=== PATIENT | male | born 1970 | race Caucasian/White ===

== ENCOUNTER 2020-10-08 18:24 | Inpatient (IN) | payer BC ==
[2020-10-08] MEDS ORDERED: ALBUTEROL HFA INHALER INHALATION STA (19:02)
[2020-10-08] MEDS ORDERED: ACETAMINOPHEN TAB 500 MG TAB PO STA (19:02)
[2020-10-08] MEDS ORDERED: DEXAMETHASONE SOD PHOSPHATE 10 MG/ML 1 ML VIAL IV STA (19:02)
--- NOTE | 2020-10-08 19:11 | ED ---
General Adult HPI - General Chief complaint: Shortness of Breath Stated complaint: Covid+,SOB Time Seen by Provider: 10/08/20 18:56 Source: patient, RN notes reviewed Mode of arrival: ambulatory Limitations: no limitations - History of Present Illness Initial comments: This a 50-year-old male presents emergency Department chief complaint of covid, shortness of breath. Patient states that he started his symptoms 8 days ago and states that he tested positive a week ago. Patient states he's been having increasing shortness breath. Denies any nausea vomiting diarrhea constipation. Patient reported fever. Patient denies any significant past medical history. Takes no medications. Patient states he exercises daily. Patient states that he is very fatigued currently. - Related Data Home Medications Medication Instructions Recorded Confirmed Acetaminophen Tab [Tylenol Tab] 1,000 mg PO Q6HR PRN 10/08/20 10/08/20 Allergies Allergy/AdvReac Type Severity Reaction Status Date / Time No Known Allergies Allergy Verified 10/08/20 20:32 Review of Systems ROS Statement: Those systems with pertinent positive or pertinent negative responses have been documented in the HPI. ROS Other: All systems not noted in ROS Statement are negative. Past Medical History Past Medical History: No Reported History History of Any Multi-Drug Resistant Organisms: None Reported Past Surgical History: No Surgical Hx Reported Past Psychological History: No Psychological Hx Reported Smoking Status: Never smoker Past Alcohol Use History: None Reported Past Drug Use History: None Reported General Exam Limitations: no limitations General appearance: alert, in no apparent distress Head exam: Present: atraumatic, normocephalic, normal inspection Eye exam: Present: normal appearance, PERRL, EOMI. Absent: scleral icterus, conjunctival injection, periorbital swelling ENT exam: Present: normal exam, normal oropharynx, mucous membranes moist, TM's normal bilaterally Neck exam: Present: normal inspection, full ROM. Absent: tenderness, meningismus, lymphadenopathy Respiratory exam: Present: normal lung sounds bilaterally. Absent: respiratory distress, wheezes, rales, rhonchi, stridor Cardiovascular Exam: Present: regular rate, normal rhythm, normal heart sounds. Absent: systolic murmur, diastolic murmur, rubs, gallop, clicks GI/Abdominal exam: Present: soft, normal bowel sounds. Absent: distended, tenderness, guarding, rebound, rigid Back exam: Absent: CVA tenderness (R) Neurological exam: Present: alert, oriented X3, CN II-XII intact, reflexes normal. Absent: motor sensory deficit Skin exam: Present: warm, dry, intact, normal color. Absent: rash Course Vital Signs 10/08/20 10/08/20 10/08/20 18:25 19:30 21:28 Temperature 100.0 F H 98.6 F Pulse Rate 91 80 70 Respiratory 20 22 20 Rate Blood Pressure 111/68 123/70 124/65 O2 Sat by Pulse 97 95 98 Oximetry EKG Findings - EKG Comments: EKG Findings:: EKG performed at 18:59 normal sinus rhythm rate of 81. 168/100 QTC is QTC 372/432 Medical Decision Making - Medical Decision Making 50-year-old presented for shortness breath. Patient has bilateral pneumonia fr om Covid. Patient does have occasional dyspnea CT of the chest was obtained negative P patient does have 2 rib fractures from a fall in September. Patient does have pulse ox of 93 with ambulation. Patient is dyspneic. Patient does have significant elevated CRP, LDH. Patient will be admitted for Covid. - Lab Data Result diagrams: 10/08/20 19:24 10/08/20 19:24 Lab Results 10/08/20 10/08/20 10/08/20 Range/Units 19:24 19:24 19:24 WBC 4.5 (3.8-10.6) k/uL RBC 4.65 (4.30-5.90) m/uL Hgb 14.4 (13.0-17.5) gm/dL Hct 42.1 (39.0-53.0) % MCV 90.6 (80.0-100.0) fL MCH 31.0 (25.0-35.0) pg MCHC 34.3 (31.0-37.0) g/dL RDW 11.5 (11.5-15.5) % Plt Count 245 (150-450) k/uL MPV 7.3 Neutrophils % 81 % Lymphocytes % 12 % Monocytes % 4 % Eosinophils % 1 % Basophils % 1 % Neutrophils # 3.6 (1.3-7.7) k/uL Lymphocytes # 0.5 L (1.0-4.8) k/uL Monocytes # 0.2 (0-1.0) k/uL Eosinophils # 0.0 (0-0.7) k/uL Basophils # 0.0 (0-0.2) k/uL PT 10.3 (9.0-12.0) sec INR 0.9 (<1.2) APTT 26.6 (22.0-30.0) sec D-Dimer 1.48 H (<0.60) mg/L FEU Sodium 135 L (137-145) mmol/L Potassium 3.8 (3.5-5.1) mmol/L Chloride 99 (98-107) mmol/L Carbon Dioxide 27 (22-30) mmol/L Anion Gap 9 mmol/L BUN 18 (9-20) mg/dL Creatinine 0.87 (0.66-1.25) mg/dL Est GFR (CKD-EPI)AfAm >90 (>60 ml/min/1.73 sqM) Est GFR (CKD-EPI)NonAf >90 (>60 ml/min/1.73 sqM) Glucose 147 H (74-99) mg/dL Plasma Lactic Acid Mayco (0.7-2.0) mmol/L Calcium 8.1 L (8.4-10.2) mg/dL Magnesium 2.2 (1.6-2.3) mg/dL Total Bilirubin 0.7 (0.2-1.3) mg/dL AST 71 H (17-59) U/L ALT 53 H (4-49) U/L Alkaline Phosphatase 59 (38-126) U/L Lactate Dehydrogenase 1133 H (313-618) U/L C-Reactive Protein 80.5 H (<10.0) mg/L Total Protein 6.8 (6.3-8.2) g/dL Albumin 3.9 (3.5-5.0) g/dL 10/08/20 Range/Units 19:24 WBC (3.8-10.6) k/uL RBC (4.30-5.90) m/uL Hgb (13.0-17.5) gm/dL Hct (39.0-53.0) % MCV (80.0-100.0) fL MCH (25.0-35.0) pg MCHC (31.0-37.0) g/dL RDW (11.5-15.5) % Plt Count (150-450) k/uL MPV Neutrophils % % Lymphocytes % % Monocytes % % Eosinophils % % Basophils % % Neutrophils # (1.3-7.7) k/uL Lymphocytes # (1.0-4.8) k/uL Monocytes # (0-1.0) k/uL Eosinophils # (0-0.7) k/uL Basophils # (0-0.2) k/uL PT (9.0-12.0) sec INR (<1.2) APTT (22.0-30.0) sec D-Dimer (<0.60) mg/L FEU Sodium (137-145) mmol/L Potassium (3.5-5.1) mmol/L Chloride (98-107) mmol/L Carbon Dioxide (22-30) mmol/L Anion Gap mmol/L BUN (9-20) mg/dL Creatinine (0.66-1.25) mg/dL Est GFR (CKD-EPI)AfAm (>60 ml/min/1.73 sqM) Est GFR (CKD-EPI)NonAf (>60 ml/min/1.73 sqM) Glucose (74-99) mg/dL Plasma Lactic Acid Mayco 1.7 (0.7-2.0) mmol/L Calcium (8.4-10.2) mg/dL Magnesium (1.6-2.3) mg/dL Total Bilirubin (0.2-1.3) mg/dL AST (17-59) U/L ALT (4-49) U/L Alkaline Phosphatase (38-126) U/L Lactate Dehydrogenase (313-618) U/L C-Reactive Protein (<10.0) mg/L Total Protein (6.3-8.2) g/dL Albumin (3.5-5.0) g/dL Disposition Clinical Impression: Pneumonia due to COVID-19 virus, Exertional dyspnea Disposition: ADMITTED IP TO THIS HOSP Condition: Fair Referrals: Marisol Smith MD [Primary Care Provider] - 1-2 days
[2020-10-08 19:32] LABS: Basophils % (A) 1 %; Eosinophils % (A) 1 %; HCT 42.1 % (39.0-53.0); HGB 14.4 gm/dL (13.0-17.5); Lymphocytes # (A) 0.5 k/uL (1.0-4.8); Lymphocytes % (A) 12 %; MCHC 34.3 g/dL (31.0-37.0); MCV 90.6 fL (80.0-100.0); Mean Platelet Volume 7.3; Monocytes # (A) 0.2 k/uL (0-1.0); Monocytes % (A) 4 %; Neutrophils # (A) 3.6 k/uL (1.3-7.7); Neutrophils % (A) 81 %; Platelet Count 245 k/uL (150-450); RBC 4.65 m/uL (4.30-5.90); RDW 11.5 % (11.5-15.5); WBC 4.5 k/uL (3.8-10.6)
[2020-10-08 19:50] LABS: Partial Thromboplastin Time 26.6 sec (22.0-30.0); Prothrombin Time 10.3 sec (9.0-12.0)
--- NOTE | 2020-10-08 19:51 | XR ---
EXAMINATION TYPE: XR chest 2V DATE OF EXAM: 10/08/2020 COMPARISON: NONE HISTORY: Shortness of breath TECHNIQUE: Frontal and lateral views of the chest are obtained. FINDINGS: There is a persistent multifocal opacities bilaterally greatest in the periphery and more prominently the left versus right lung. Left basilar involvement noted. The cardiac silhouette size i s within normal limits. Overlying EKG leads. The osseous structures are intact. IMPRESSION: Bilateral multifocal opacities strongly suspicious for covid-19 infection. Correlate cli nically.
[2020-10-08 19:55] LABS: ALT 53 U/L (4-49); AST 71 U/L (17-59); African American GFR (CKD) >90 (>60 ml/min/1.73 sqM); Albumin 3.9 g/dL (3.5-5.0); Alkaline Phosphatase 59 U/L (38-126); Anion Gap 9 mmol/L; Blood Urea Nitrogen 18 mg/dL (9-20); C Reactive Protein 80.5 mg/L (<10.0); Calcium 8.1 mg/dL (8.4-10.2); Carbon Dioxide 27 mmol/L (22-30); Chloride 99 mmol/L (98-107); Glucose 147 mg/dL (74-99); LDH 1133 U/L (313-618); Magnesium 2.2 mg/dL (1.6-2.3); Non-African American GFR(CKD) >90 (>60 ml/min/1.73 sqM); Potassium 3.8 mmol/L (3.5-5.1); Sodium 135 mmol/L (137-145); Total Bilirubin 0.7 mg/dL (0.2-1.3); Total Protein 6.8 g/dL (6.3-8.2)
[2020-10-08 20:06] LABS: INR 0.9 (<1.2)
[2020-10-08 20:07] LABS: D-Dimer 1.48 mg/L FEU (<0.60)
--- NOTE | 2020-10-08 21:28 | CT ---
EXAMINATION TYPE: CT chest angio for PE DATE OF EXAM: 10/08/2020 COMPARISON: Chest x-ray earlier today HISTORY: SOB, chest pain, +covid. recent chest injury to right side. CT DLP: 455.7 mGycm Automated exposure control for dose reduction was used. CONTRAST: CT Chest for pulmonary embolism performed with with IV Contrast, patient injected with 92cc mL of Iso wei 370. FINDINGS: LUNGS: Correlating with x-ray there are multifocal groundglass opacities in the periphery of the bila teral lungs. Trace bilateral pleural effusions. No pneumothorax. Suboptimal study particularly in the bases due to patient inability to hold breath. MEDIASTINUM: There is a suboptimal study with most dense contrast in the SVC. There is equal contras t the right and left heart systems. There is some heterogeneity in the periphery making evaluation hanson boptimal. No central pulmonary embolism. Prominent hilar lymph nodes. Prominent prevascular and AP wi ndow lymph nodes. No cardiomegaly or pericardial effusion is seen. OTHER: There is acute/subacute nondisplaced linear fracture right lateral eighth rib near image 137 and acute/subacute minimally displaced fracture anterolateral right seventh rib on axial image 122. IMPRESSION: Suboptimal study without central pulmonary embolism. Smaller segmental and subsegmental P E not entirely excluded on this study. Bilateral multifocal peripheral groundglass opacities consiste nt with known covid-19 infection. Acute/subacute nondisplaced and minimally displaced fractures of ri ght anterolateral seventh and eighth ribs.
[2020-10-08] MEDS ORDERED: IBUPROFEN 400 MG TAB PO PRN (22:24)
[2020-10-08] MEDS ORDERED: NALOXONE 0.4 MG/ML 1 ML VIAL IV PRN (22:24)
[2020-10-08] MEDS ORDERED: ACETAMINOPHEN TAB 325 MG TAB PO PRN (22:24)
[2020-10-08] MEDS ORDERED: ONDANSETRON 4 MG/2 ML VIAL IVP PRN (22:24)
[2020-10-09] MEDS ORDERED: REMDESIVIR 200 MG in SODIUM CHLORIDE 0.9% 250 ML IVPB ONE (13:00)
--- NOTE | 2020-10-09 13:32 | P.HPIM ---
History of Present Illness Is a pleasant 50-year-old male came in with complaints of generalized weakness and shortness of breath found to have cold and 19. Patient is not requiring oxygen at this time but patient has significant infiltrate on the CAT scan CTA did not show any pneumonia. Because of that significant infiltrate pulmonology is recommending that with steroids and monitoring. Patient had a fever last night. Patient has significant cough. Review of Systems REVIEW OF SYSTEMS: CONSTITUTIONAL: As mentioned in HPI HEENT: No recent visual problems or hearing problems. Denied any sore throat. CARDIOVASCULAR: No chest pain, orthopnea, PND, no palpitations, no syncope. PULMONARY: no hemoptysis. GASTROINTESTINAL: No diarrhea, no nausea, no vomiting, no abdominal pain. NEUROLOGICAL: No headaches, no weakness, no numbness. HEMATOLOGICAL: Denies any bleeding or petechiae. GENITOURINARY: Denies any burning micturition, frequency, or urgency. MUSCULOSKELETAL/RHEUMATOLOGICAL: Denies any joint pain, swelling, or any muscle pain. ENDOCRINE: Denies any polyuria or polydipsia. The rest of the 14-point review of systems is negative. Past Medical History Past Medical History: No Reported History, Thyroid Disorder Additional Past Medical History / Comment(s): Pt states he tested + for covid on 10/01/20 at [facility] on [address] History of Any Multi-Drug Resistant Organisms: None Reported Past Surgical History: No Surgical Hx Reported Past Anesthesia/Blood Transfusion Reactions: Unable to Obtain Additional Past Anesthesia/Blood Transfusion Reaction / Comment(s): Pt has never had surgery. Smoking Status: Never smoker - Past Family History Father Family Medical History: No Reported History Additional Family Medical History / Comment(s): Father is healthy Mother Family Medical History: No Reported History Additional Family Medical History / Comment(s): Mother is healthy Medications and Allergies Home Medications Medication Instructions Recorded Confirmed Type Acetaminophen Tab [Tylenol] 1,000 mg PO Q6HR PRN 10/08/20 10/08/20 History Ascorbic Acid [Vitamin C] 500 mg PO BID #20 tab 10/09/20 Rx Cholecalciferol [Vitamin D3 (25 125 mcg PO DAILY #20 tablet 10/09/20 Rx Mcg = 1000 Iu)] Zinc Sulfate [Orazinc] 220 mg PO DAILY #20 cap 10/09/20 Rx Allergies Allergy/AdvReac Type Severity Reaction Status Date / Time No Known Allergies Allergy Verified 10/08/20 20:32 Physical Exam Vitals: Vital Signs Temp Pulse Pulse Resp BP BP Pulse Ox 10/09/20 10:00 18 97 10/09/20 08:41 97.8 F 62 18 108/78 10/09/20 05:25 97.6 F 56 L 18 109/68 99 10/09/20 01:36 61 20 102/48 97 10/08/20 23:59 98.2 F 55 L 18 111/68 100 10/08/20 21:28 98.6 F 70 20 124/65 98 10/08/20 19:30 80 22 123/70 95 10/08/20 18:25 100.0 F H 91 20 111/68 97 Intake and Output 10/08/20 10/09/20 10/09/20 22:59 06:59 14:59 Other: # Voids 1 Weight 102.058 kg 102.058 kg PHYSICAL EXAMINATION: GENERAL: The patient is alert and oriented x3, not in any acute distress. Well developed, well nourished. HEENT: Pupils are round and equally reacting to light. EOMI. No scleral icterus. No conjunctival pallor. Normocephalic, atraumatic. No pharyngeal erythema. No thyromegaly. CARDIOVASCULAR: S1 and S2 present. No murmurs, rubs, or gallops. PULMONARY: Chest is clear to auscultation, no wheezing or crackles. ABDOMEN: Soft, nontender, nondistended, normoactive bowel sounds. No palpable organomegaly. MUSCULOSKELETAL: No joint swelling or deformity. EXTREMITIES: No cyanosis, clubbing, or pedal edema. NEUROLOGICAL: Gross neurological examination did not reveal any focal deficits. SKIN: No rashes. Results CBC & Chem 7: 10/08/20 19:24 10/08/20 19:24 Labs: Abnormal Lab Results - Last 24 Hours (Table) 10/08/20 10/08/20 10/08/20 Range/Units 19:24 19:24 19:24 Lymphocytes # 0.5 L (1.0-4.8) k/uL D-Dimer 1.48 H (<0.60) mg/L FEU Sodium 135 L (137-145) mmol/L Glucose 147 H (74-99) mg/dL Calcium 8.1 L (8.4-10.2) mg/dL AST 71 H (17-59) U/L ALT 53 H (4-49) U/L Lactate Dehydrogenase 1133 H (313-618) U/L C-Reactive Protein 80.5 H (<10.0) mg/L Procalcitonin (0.02-0.09) ng/mL 10/08/20 Range/Units 19:24 Lymphocytes # (1.0-4.8) k/uL D-Dimer (<0.60) mg/L FEU Sodium (137-145) mmol/L Glucose (74-99) mg/dL Calcium (8.4-10.2) mg/dL AST (17-59) U/L ALT (4-49) U/L Lactate Dehydrogenase (313-618) U/L C-Reactive Protein (<10.0) mg/L Procalcitonin 0.19 H (0.02-0.09) ng/mL Thrombosis Risk Factor Assmnt - Choose All That Apply Any of the Below Risk Factors Present?: Yes Each Factor Represents 1 point: Age 41-60 years, Obesity (BMI >25), Serious lung disease incl. pneumonia (< 1month) Other Risk Factors: No Other congenital or acquired thrombophilia - If yes, enter type in comment: No Thrombosis Risk Factor Assessment Total Risk Factor Score: 3 Thrombosis Risk Factor Assessment Level: Moderate Risk Assessment and Plan Plan: Covid 19 pneumonia: Patient will be continued on systemic steroids, zinc and the will monitor the inflammatory markers. Patient was started on Lovenox as well. Patient was started on Remdesivir -Sepsis secondary to Covid 19 -Due to prophylaxis Lovenox and GI prophylaxis Pepcid
[2020-10-09] MEDS: ZINC SULFATE 220 MG CAP PO SCH (13:47)
[2020-10-09] MEDS: COLCHICINE 0.6 MG EACH PO SCH ×2 (13:47→20:24)
[2020-10-09] MEDS: ASCORBIC ACID 500 MG TAB PO SCH ×2 (13:47→20:24)
[2020-10-09] MEDS: dexAMETHasone 2 MG TAB PO SCH (13:47)
[2020-10-09] MEDS: CHOLECALCIFEROL 25 MCG (1000 IU) TABLET PO SCH (13:47)
[2020-10-09] MEDS: ENOXAPARIN 40 MG/0.4 ML SYRINGE SQ SCH (13:48)
--- NOTE | 2020-10-09 13:53 | P.CNPUL ---
History of Present Illness Consult date: 10/09/20 Requesting physician: Elisha Love Reason for consult: dyspnea, cough, pneumonia, abnormal CXR/CT Chief complaint: COVID 19 pneumonitis History of present illness: 50-year-old white male with no significant medical history, nonsmoker, who presented to the emergency department on 10/08/2020 with complaints of cough, and shortness of breath. Patient states he has been sick since Wednesday, started getting a fever, on Wednesday he stayed home from work, he tested positive for COVID 19. He has a dry cough, headache and diarrhea. No abdominal pain, no nausea or vomiting. His chest x-ray showed bilateral multifocal opacities consistent with patient's history COVID 19 infection. He is lymphopenic on the CBC, with psychotic 0.5, d-dimer is 1.48, electrolytes and renal profile were unremarkable, lactic acid is 1.7, his AST and ALT are elevated at 71 and 53 respectively, alkaline phosphatase is 59, LDH is 1133, and CRP is 80.5. Pro- calcitonin level is 0.19. Low-grade fever on admission with a temp of 100F, is currently on 2 L of oxygen his pulse ox is 98%, vital signs are stable, his CTA chest shows suboptimal study without central pulmonary embolism, and multifocal groundglass opacities in the periphery of the bilateral lungs, trace bilateral pleural effusions. Patient has shortness of breath, and persistent dry cough. He was started on steroids, we will start him on Remdesivir, multivitamins, prophylactic Lovenox. Review of Systems All systems: negative Constitutional: Denies chills, Denies fever Eyes: denies blurred vision, denies pain Ears, nose, mouth and throat: Reports sore throat, Denies headache Cardiovascular: Denies chest pain, Denies shortness of breath Respiratory: Reports cough, Reports dyspnea Gastrointestinal: Reports diarrhea, Denies abdominal pain, Denies nausea, Denies vomiting Musculoskeletal: Denies myalgias Integumentary: Denies pruritus, Denies rash Neurological: Denies numbness, Denies weakness Psychiatric: Denies anxiety, Denies depression Endocrine: Denies fatigue, Denies weight change Past Medical History Past Medical History: No Reported History, Thyroid Disorder Additional Past Medical History / Comment(s): Pt states he tested + for covid on 10/01/[address] [facility] on [address] History of Any Multi-Drug Resistant Organisms: None Reported Past Surgical History: No Surgical Hx Reported Past Anesthesia/Blood Transfusion Reactions: Unable to Obtain Additional Past Anesthesia/Blood Transfusion Reaction / Comment(s): Pt has never had surgery. Smoking Status: Never smoker - Past Family History Father Family Medical History: No Reported History Additional Family Medical History / Comment(s): Father is healthy Mother Family Medical History: No Reported History Additional Family Medical History / Comment(s): Mother is healthy Medications and Allergies Home Medications Medication Instructions Recorded Confirmed Type Acetaminophen Tab [Tylenol] 1,000 mg PO Q6HR PRN 10/08/20 10/08/20 History Ascorbic Acid [Vitamin C] 500 mg PO BID #20 tab 10/09/20 Rx Cholecalciferol [Vitamin D3 (25 125 mcg PO DAILY #20 tablet 10/09/20 Rx Mcg = 1000 Iu)] Zinc Sulfate [Orazinc] 220 mg PO DAILY #20 cap 10/09/20 Rx Allergies Allergy/AdvReac Type Severity Reaction Status Date / Time No Known Allergies Allergy Verified 10/08/20 20:32 Physical Exam Vitals: Vital Signs Temp Pulse Pulse Resp BP BP Pulse Ox 10/09/20 10:00 18 97 10/09/20 08:41 97.8 F 62 18 108/78 10/09/20 05:25 97.6 F 56 L 18 109/68 99 10/09/20 01:36 61 20 102/48 97 10/08/20 23:59 98.2 F 55 L 18 111/68 100 10/08/20 21:28 98.6 F 70 20 124/65 98 10/08/20 19:30 80 22 123/70 95 10/08/20 18:25 100.0 F H 91 20 111/68 97 Intake and Output 10/08/20 10/09/20 10/09/20 22:59 06:59 14:59 Other: # Voids 1 Weight 102.058 kg 102.058 kg GENERAL EXAM: Alert, active, comfortable in no apparent distress. HEAD: Normocephalic/atraumatic. EYES: Normal reaction of pupils, equal size. Conjunctiva pink, sclera white. NOSE: Clear with pink turbinates. THROAT: No erythema or exudates. NECK: No masses, no JVD, no thyroid enlargement, no adenopathy. CHEST: No chest wall deformity. Symmetrical expansion. LUNGS: Equal air entry with scattered crackles CVS: Regular rate and rhythm, normal S1 and S2, no gallops, no murmurs, no rubs ABDOMEN: Soft, nontender. No hepatosplenomegaly, normal bowel sounds, no guarding or rigidity. EXTREMITIES: No clubbing, no edema, no cyanosis, 2+ pulses and upper and lower extremities. MUSCULOSKELETAL: Muscle strength and tone normal. SPINE: No scoliosis or deformity SKIN: No rashes CENTRAL NERVOUS SYSTEM: Alert and oriented -3. No focal deficits, tone is normal in all 4 extremities. PSYCHIATRIC: Alert and oriented -3. Appropriate affect. Intact judgment and insight. Results - Laboratory Findings CBC and BMP: 10/08/20 19:24 10/08/20 19:24 PT/INR, D-dimer PT 10.3 sec (9.0-12.0) 10/08/20 19:24 INR 0.9 (<1.2) 10/08/20 19:24 D-Dimer 1.48 mg/L FEU (<0.60) H 10/08/20 19:24 Abnormal lab findings: Abnormal Labs 10/08/20 10/08/20 10/08/20 19:24 19:24 19:24 Lymphocytes # 0.5 L D-Dimer 1.48 H Sodium 135 L Glucose 147 H Calcium 8.1 L AST 71 H ALT 53 H Lactate Dehydrogenase 1133 H C-Reactive Protein 80.5 H Procalcitonin 10/08/20 19:24 Lymphocytes # D-Dimer Sodium Glucose Calcium AST ALT Lactate Dehydrogenase C-Reactive Protein Procalcitonin 0.19 H - Diagnostic Findings Chest x-ray: report reviewed, image reviewed CT scan - chest: report reviewed, image reviewed Additional studies: EKG reviewed Assessment and Plan Plan: Assessment: #1. Acute COVID 19 pneumonitis, with onset of symptoms since last 10/06/2020, will be started on Remdesivir treatment today on 10/09/2020 #2. Mild dyspnea, mild hypoxia, cough, diarrhea, headache related to the above #3. Elevated d-dimer, with no CTA evidence of central pulmonary embolism although this was a suboptimal study #4. Elevated inflammatory markers and liver enzymes related to viral pneumonia #5. Nonsmoker #6. Recent trauma to the chest from a fall in September 2020, and CTA chest revealed acute/subacute nondisplaced linear fracture of the right lateral eighth rib and minimally displaced fracture of anterolateral right seventh rib Plan: We'll add decadron 6 mg daily, prophylactic dose Lovenox, we'll start the patient on Remdesivir treatment, will add multivitamins. Chest x-ray and CT chest showed significant multifocal groundglass opacities. Patient is awaiting a bed on medical surgical floor, will continue to follow the patient, if remains stable or improving may cut the Remdesivir treatment short and consider the patient for discharge home in the next 24 hours I performed a history & physical examination of the patient and discussed their management with my nurse practitioner, Shelby Roman. I reviewed the nurse practitioner's note and agree with the documented findings and plan of care. Lung sounds are positive for diminished breath sounds The findings and the impression was discussed with the patient. I attest to the documentation by the nurse practitioner. Time with Patient: Greater than 30
--- NOTE | 2020-10-09 22:35 | CONS ---
CONSULTATION DATE OF SERVICE: 10/09/2020 REASON FOR CONSULTATION: COVID-19 infection. HISTORY OF PRESENT ILLNESS: The patient is a 50-year-old male who presented to the ER for evaluation of increasing shortness of breath and cough. The patient's symptoms had been going on since Wednesday -- that is 3 days prior to presentation to the hospital. The patient's main symptom remains shortness of breath on minimal exertion. He also has a cough which has been moderate in intensity, not bringing up any sputum. He is complaining of some pleuritic chest pain, especially taking a deep breath or cough, moderate in intensity, 3 to 4 out of 10 and no radiation. The patient feels nauseated but no vomiting. He denies having any diarrhea. With these symptoms, the patient was evaluated by the ER physician. On arrival in the ER, the patient had a fever of 102 degrees Fahrenheit. No clear documentation of his hypoxemia. The patient on admission was 97% on room air, currently 91% on room air. The patient did have a normal white count with lymphopenia and elevated D-dimer. Kidney function was normal. Liver enzymes are elevated. Did have elevated LDH, CRP and mildly elevated procalcitonin. The patient did have a chest x-ray with bilateral multifocal opacities strongly suspicious for COVID-19, confirmed on a CT angiogram of the chest. The patient has been admitted to the hospital. Infectious Disease was consulted for further management. REVIEW OF SYSTEMS: Positive points have been mentioned in the HPI. Rest of the systems are negative. PAST MEDICAL HISTORY: No major illnesses. PAST SURGICAL HISTORY: No surgeries. SOCIAL HISTORY: The patient denies smoking, drinking and drug use. FAMILY HISTORY: No pertinent findings noticed. ALLERGIES: NO KNOWN DRUG ALLERGIES. MEDICATIONS: The patient is currently on Tylenol, vitamin C, vitamin D3, colchicine, dexamethasone, Lovenox, Motrin, Narcan, Zofran, remdesivir and zinc sulfate. PHYSICAL EXAMINATION: Blood pressure 123/77, pulse of 73, temperature 97.8. He is 91% on room air. General description is a middle-aged male lying in bed in no distress. No tachypnea or accessory muscle of respiration use. HEENT: Examination shows no pallor or scleral icterus. Oral mucous membrane is dry. No pharyngeal erythema or thrush. NECK: Trachea is central. No thyromegaly. LUNGS: Unlabored breathing with decreased intensity of breath sounds. No significant wheeze. HEART: S1, S2. Regular rate and rhythm. ABDOMEN: Soft. No tenderness. No guarding or rigidity. No organomegaly. EXTREMITIES: No edema of the feet. SKIN EXAMINATION: No rash or mass palpable. Neurologically the patient is awake, alert, oriented x3. Mood and affect normal. LABS: Hemoglobin is 14.4, white count 4.5. D-dimer is 1.48, creatinine 0.87. Elevated liver enzymes as well as LDH and CRP. CTA chest was reported as mentioned above. DIAGNOSTIC IMPRESSION AND PLAN: Patient admitted to hospital with increased shortness of breath and cough in this patient who did have evidence of multifocal pneumonia on the chest x-ray confirmed on CT secondary to acute COVID-19 infection. Clinically doubt evidence of any secondary bacterial pneumonia. PLAN: 1. Patient will be started on remdesivir; to continue per protocol. 2. Lovenox, dexamethasone, zinc, colchicine and vitamin C. 3. Droplet isolation and respiratory support. 4. Will follow his clinical condition and further adjust medication if needed. Thank you for this consultation. Will follow this patient along with you. MMODL / IJN: [id number] /
[2020-10-10] MEDS: ENOXAPARIN 40 MG/0.4 ML SYRINGE SQ SCH (08:34)
[2020-10-10] MEDS: CHOLECALCIFEROL 25 MCG (1000 IU) TABLET PO SCH (08:34)
[2020-10-10] MEDS: ASCORBIC ACID 500 MG TAB PO SCH (08:36)
[2020-10-10] MEDS: dexAMETHasone 2 MG TAB PO SCH (08:36)
[2020-10-10] MEDS: ZINC SULFATE 220 MG CAP PO SCH (08:37)
[2020-10-10] MEDS: COLCHICINE 0.6 MG EACH PO SCH (11:43)
[2020-10-10 12:50] VITALS: RESP 16
[2020-10-10] MEDS ORDERED: REMDESIVIR 100 MG in SODIUM CHLORIDE 0.9% 250 ML IVPB SCH (13:00)
--- NOTE | 2020-10-10 13:21 | P.PN ---
Subjective Progress Note Date: 10/10/20 Principal diagnosis: 50-year-old white male with no significant medical history, nonsmoker, who presented to the emergency department on 10/08/2020 with complaints of cough, and shortness of breath. Patient states he has been sick since Wednesday, started getting a fever, on Wednesday he stayed home from work, he tested positive for COVID 19. He has a dry cough, headache and diarrhea. No abdominal pain, no nausea or vomiting. His chest x-ray showed bilateral multifocal opacities consistent with patient's history COVID 19 infection. He is lymphopenic on the CBC, with psychotic 0.5, d-dimer is 1.48, electrolytes and renal profile were unremarkable, lactic acid is 1.7, his AST and ALT are elevated at 71 and 53 respectively, alkaline phosphatase is 59, LDH is 1133, and CRP is 80.5. Pro- calcitonin level is 0.19. Low-grade fever on admission with a temp of 100F, is currently on 2 L of oxygen his pulse ox is 98%, vital signs are stable, his CTA chest shows suboptimal study without central pulmonary embolism, and multifocal groundglass opacities in the periphery of the bilateral lungs, trace bilateral pleural effusions. Patient has shortness of breath, and persistent dry cough. He was started on steroids, we will start him on Remdesivir, multivitamins, prophylactic Lovenox. The patient is seen today 10/10/2020 in follow-up on the regular medical floor. He is currently sitting up in a chair at the bedside. Awake and alert in no acute distress. Feeling about the same today as compared to yesterday. No worse. He is dyspneic with minimal exertion. Sustain #2 of Remdesivir. He remains on Lovenox, dexamethasone, colchicine, vitamin supplements. Maintaining O2 saturations in the 90s on 2 L/m per nasal cannula. Afebrile. Sputum culture pending. Objective - Vital Signs Vital signs: Vital Signs Temp 97.9 F 10/10/20 10:00 Pulse 66 10/10/20 10:00 Resp 16 10/10/20 10:00 BP 121/65 10/10/20 10:00 Pulse Ox 97 10/10/20 10:00 Intake & Output 10/09/20 10/10/20 10/10/20 18:59 06:59 18:59 Output Total 0 Balance 0 Weight 102.058 kg Output: Urine 0 Other: Voiding Method Toilet # Voids 1 - Exam GENERAL EXAM: Alert, pleasant 42-year-old gentleman, on 2 L nasal cannula, comfortable in no apparent distress. HEAD: Normocephalic. EYES: Normal reaction of pupils, equal size. NOSE: Clear with pink turbinates. THROAT: No erythema or exudates. NECK: No masses, no JVD. CHEST: No chest wall deformity. LUNGS: Equal air entry with coarse crackles in the bilateral posterior bases. CVS: S1 and S2 normal with no audible murmur, regular rhythm. ABDOMEN: No hepatosplenomegaly, normal bowel sounds, no guarding or rigidity. SPINE: No scoliosis or deformity SKIN: No rashes CENTRAL NERVOUS SYSTEM: No focal deficits, tone is normal in all 4 extremities. EXTREMITIES: There is no peripheral edema. No clubbing, no cyanosis. Peripheral pulses are intact. - Labs CBC & Chem 7: 10/08/20 19:24 10/08/20 19:24 Labs: Microbiology - Last 24 Hours (Table) 10/09/20 17:25 Gram Stain - Preliminary Sputum Sputum Culture - Preliminary Assessment and Plan Assessment: 1 Acute COVID 19 pneumonitis, with onset of symptoms since last 10/06/2020, will be started on Remdesivir treatment today on 10/09/2020 2 Mild dyspnea, mild hypoxia, cough, diarrhea, headache related to the above 3 Elevated d-dimer, with no CTA evidence of central pulmonary embolism although this was a suboptimal study 4 Elevated inflammatory markers and liver enzymes related to viral pneumonia 5 Nonsmoker 6 Recent trauma to the chest from a fall in September 2020, and CTA chest revealed acute/subacute nondisplaced linear fracture of the right lateral eighth rib and minimally displaced fracture of anterolateral right seventh rib Plan: The patient was seen and evaluated by Dr. Soler Currently stable from the pulmonary standpoint Day #2 of Remdesivir Continue Lovenox, dexamethasone, colchicine, vitamin supplements I, the cosigning physician, performed a history & physical examination of the patient. Lungs sounds crackles in the bilateral posterior bases. Maintaining good O2 saturations in the 90s on 2 L/m nasal cannula I discussed the assessment and plan of care with my nurse practitioner, Ayaka Frank. I attest to the above note as dictated by her.
[2020-10-10 13:31] VITALS: BMI 29.7
[2020-10-10 14:27] VITALS: BP 114/68; PULSE 69; TEMP 97.8
--- NOTE | 2020-10-10 14:51 | P.DS ---
Providers Date of admission: 10/09/20 00:28 Attending physician: Fitz Paez Consults: 10/08/20 22:25 Consult Physician Urgent Consulting Provider: Wali Soler Consult Reason/Comments: COVID Do you want consulting provider notified?: Yes Consult Physician Urgent Consulting Provider: Johnna Barr Consult Reason/Comments: COVID Do you want consulting provider notified?: Yes Primary care physician: [facility] Course: 50-year-old male came in with complaints of generalized weakness and shortness of breath found to have cold and 19. Patient is not requiring oxygen at this time but patient has significant infiltrate on the CAT scan CTA did not show any pneumonia. Because of that significant infiltrate pulmonology is recommending that with steroids and monitoring. Patient had a fever last night. Patient has significant cough. 10/10/2020 She is clinically doing well, with this can you the oxygen will ablate the patient if he is not requiring any oxygen patient will be discharged today. received 2 doses of Remdesivir. Considering severity index in severity of infiltrate patient will be discharged on 8 more days of Decadron along with Pepcid. PHYSICAL EXAMINATION: GENERAL: The patient is alert and oriented x3, not in any acute distress. Well developed, well nourished. HEENT: Pupils are round and equally reacting to light. EOMI. No scleral icterus. No conjunctival pallor. Normocephalic, atraumatic. No pharyngeal erythema. No thyromegaly. CARDIOVASCULAR: S1 and S2 present. No murmurs, rubs, or gallops. PULMONARY: Chest is clear to auscultation, no wheezing or crackles. ABDOMEN: Soft, nontender, nondistended, normoactive bowel sounds. No palpable organomegaly. MUSCULOSKELETAL: No joint swelling or deformity. EXTREMITIES: No cyanosis, clubbing, or pedal edema. NEUROLOGICAL: Gross neurological examination did not reveal any focal deficits. SKIN: No rashes. Assessment and Plan Plan: Covid 19 pneumonia: Patient will be continued on systemic steroids, zinc . Patient received 2 doses of Remdesivir. -Sepsis secondary to Covid 19 Patient Condition at Discharge: Fair Plan - Discharge Summary Discharge Rx Participant: No New Discharge Prescriptions: New Zinc Sulfate [Orazinc] 220 mg PO DAILY #20 cap Ascorbic Acid [Vitamin C] 500 mg PO BID #20 tab Cholecalciferol [Vitamin D3 (25 Mcg = 1000 Iu)] 125 mcg PO DAILY #20 tablet Dexamethasone [Decadron] 6 mg PO DAILY #8 tablet Famotidine [Pepcid] 20 mg PO BID #20 tablet Continue Acetaminophen Tab [Tylenol] 1,000 mg PO Q6HR PRN PRN Reason: Pain Or Fever > 100.5 Discharge Medication List Acetaminophen Tab [Tylenol] 1,000 mg PO Q6HR PRN 10/08/20 [History] Ascorbic Acid [Vitamin C] 500 mg PO BID #20 tab 10/09/20 [Rx] Cholecalciferol [Vitamin D3 (25 Mcg = 1000 Iu)] 125 mcg PO DAILY #20 tablet 10/09/20 [Rx] Zinc Sulfate [Orazinc] 220 mg PO DAILY #20 cap 10/09/20 [Rx] Dexamethasone [Decadron] 6 mg PO DAILY #8 tablet 10/10/20 [Rx] Famotidine [Pepcid] 20 mg PO BID #20 tablet 10/10/20 [Rx] Follow up Appointment(s)/Referral(s): Marisol Smith MD [Primary Care Provider] - 10/14/20 5:45 pm (This will be a telephone call) Patient Instructions/Handouts: Coronavirus Disease 2019 (COVID-19) Discharge Disposition: HOME SELF-CARE
== END 2020-10-10 15:03 | disposition home or self-care (01) | DRG 871 ==
LOC: EC 18:24 → 1SOBS 10-09 00:28 → 4SSUR 10-09 00:32
PROVIDERS: ADMIT Hospitalist; ATTEND Hospitalist
PROC: XW033E5 Introduction of Remdesivir Anti-infective into Peripheral Vein, Percutaneous Approach, New Technology Group 5 (ICD-10-PCS; principal; 2020-10-09)
DX: A41.89 Other specified sepsis (principal); J12.82 Pneumonia due to coronavirus disease 2019; U07.1 COVID-19; D72.810 Lymphocytopenia; R09.02 Hypoxemia; S22.41XD Multiple fractures of ribs, right side, subsequent encounter for fracture with routine healing; W19.XXXD Unspecified fall, subsequent encounter; R79.1 Abnormal coagulation profile; R19.7 Diarrhea, unspecified
CPT/HCPCS: 36415; 71046; 71275; 80053; 83605; 83615; 83735; 84145; 85025; 85379; 85610; 85730; 86140; 87070; 87205; 93005; 94640; 96365; 96366; 96374; 99285